=== PATIENT | male | born 1985 | race Caucasian/White ===

== ENCOUNTER 2018-05-30 09:50 | Outpatient (RCR) | payer BC ==
[~2018-05-30 09:50] MED LIST: APIX5TAB PO; DILT120C94 PO
== END 2018-07-29 | disposition home or self-care (01) ==
LOC: CARD 09:50
PROVIDERS: ATTEND Internal Medicine Interventional Cardiology
DX: I48.1 Persistent atrial fibrillation (principal)
CPT/HCPCS: 93270

== ENCOUNTER 2019-05-15 08:10 | Day surgery (SDC) | payer BC ==
[~2019-05-15] VITALS: Ht 185.4 cm; Wt 102.7 kg
[2019-05-15] MEDS ORDERED: LIDOCAINE 1% INJ 20 ML 20 ML VIAL ONE (08:31)
[2019-05-15 08:40] VITALS: BP 136/92
[2019-05-15] MEDS ORDERED: LIDOCAINE 1% INJ 20 ML 20 ML VIAL INJ ONE (08:45)
--- NOTE | 2019-05-15 09:04 | Implantation of Loop Monitor ---
Implant of Loop Monitior PROCEDURE PHYSICIAN: Issa Francisco MD IMPLANTATION OF LOOP MONITOR REPORT DATE OF PROCEDURE: 05/15/19 PERFORMING PHYSICIAN: Dr. Eyad Francisco. INDICATION: Long-term surveillance of atrial fibrillation PREOP DIAGNOSIS: Long-term surveillance of atrial fibrillation POSTOP DIAGNOSIS: Paroxysmal Atrial fibrillation, s/p implantation of loop recorder. PROCEDURE DETAILS: The patient is a 34 male with history of paroxysmal atrial fibrillation requiring long-term surveillance. Therefore implantable loop recorder was discussed and agreed with the patient. Informed consent was taken. All risks and complications were discussed at length. The patient was draped and prepped in the usual sterile fashion. Local anesthesia was lidocaine, which was given in the substernal area close to the 4th intercostal space. Loop monitor was implanted according to the protocol. Steri-Strips were placed at the end of the procedure. There were no complications and the patient tolerated the procedure well. ANESTHESIA: Local anesthesia with lidocaine. COMPLICATIONS: None CONTRAST/FLUOROSCOPY: None CONCLUSION: 1. Successful implantation of loop monitor for long-term surveillance for atrial fibrillation. 2. No complication and the patient tolerated the procedure well. Issa Francisco MD, [facility] Cardiac Electrophysiology Jhon FRANCISCO MD May 15, 2019 9:04 am POS
[2019-05-15 09:19] VITALS: BP 118/90
== END 2019-05-15 09:23 | disposition home or self-care (01) ==
LOC: CATH 08:10
PROVIDERS: ATTEND Internal Medicine Interventional Cardiology
DX: I48.0 Paroxysmal atrial fibrillation (principal); G47.33 Obstructive sleep apnea (adult) (pediatric); F10.20 Alcohol dependence, uncomplicated; E66.9 Obesity, unspecified; Z68.29 Body mass index [BMI] 29.0-29.9, adult; Z83.3 Family history of diabetes mellitus; Z82.49 Family history of ischemic heart disease and other diseases of the circulatory system; Z87.891 Personal history of nicotine dependence
CPT/HCPCS: 33285

== ENCOUNTER → 2020-07-27 | Outpatient (CLI) | payer BC ==
[~2020-07-27] MED LIST changes: +DILT120C88 PO; -DILT120C94 PO
== END ==
LOC: CARD 08:30
PROVIDERS: ATTEND Internal Medicine Cardiovascular Disease
DX: I51.7 Cardiomegaly (principal); I34.0 Nonrheumatic mitral (valve) insufficiency; Z78.9 Other specified health status
CPT/HCPCS: 93306

== ENCOUNTER → 2020-07-28 | Outpatient (CLI) | payer BC ==
[~2020-07-28] VITALS: Ht 185 cm; Wt 107.0 kg
[~2020-07-28] MED LIST changes: +CATHETER FLUSH 10 ML SYR IV PRN
[2020-07-28 09:09] VITALS: BP 144/91
--- NOTE | 2020-07-28 12:44 | Cardiology Stress Test Report ---
Stress Test Report Date of Procedure/Referring: Date of Procedure: Jul 28, 2020 PCP Uzair Chin MD Admitting Physician No,Local Physician Indications: Chest pain Baseline Heart Rate: 62 Baseline Blood Pressure: Blood Pressure Systolic: 144 Blood Pressure Diastolic: 91 Vital Signs Date Time Temp Pulse Resp B/P (MAP) Pulse Ox O2 Delivery O2 Flow Rate FiO2 07/28/20 09:09 62 144/91 (108) Baseline Vital Signs Vital Signs Date Time Temp Pulse Resp B/P (MAP) Pulse Ox O2 Delivery O2 Flow Rate FiO2 07/28/20 09:09 62 144/91 (108) Baseline EKG: Baseline EKG: normal sinus rhythm Summary: After explaining the procedure and details to the patient, he signed the consent and was brought to the stress nuclear laboratory. Patient exercised on standard Dalton protocol, EKG, heart rate and blood pressure were monitored continuously, resting and stress doses of radio tracer were injected, imaging was acquired and reviewed in the short axis, horizontal long axis and vertical long axis views Patient was able to exercise for a total of 10 minutes on Dalton protocol, METs 11.5 Maximum heart rate 183 Maximum blood pressure 240/86 Stress EKG, Minimal nondiagnostic changes Recovery EKG, Return to baseline TID: 1.02 SSS: 1 SDS: 1 EF: 55 Conclusion: 1. Good exercise tolerance for total of 10 minutes on standard protocol, 11.5 metastases achieving percent of maximum expected heart rate 2. Hypertensive response to exercise with peak blood pressure 240/86. 3. Nondiagnostic EKG changes with exercise returned to baseline during recovery 4. No ischemia or infarct SPECT images 5. Normal LV size, EF 55 percent UZAIR CHIN MD Jul 28, 2020 12:44
== END ==
LOC: CARD 07:45
PROVIDERS: ATTEND Internal Medicine Cardiovascular Disease
DX: R07.9 Chest pain, unspecified (principal); Z78.9 Other specified health status
CPT/HCPCS: 78452; 93017; A9502